=== PATIENT | female | born 1950 | race Caucasian/White ===

== ENCOUNTER 2019-03-28 09:09 | Emergency (ER) | payer OTHER ==
--- OUTSIDE RECORDS SUMMARY | 2019-03-28 09:12 | XMS REPORT ---
:1950 Author Organization [facility] Address [address] [place] [address] Care Team Providers Name Role Phone Unavailable Unavailable Unavailable Payers Payer Name Policy Type Policy Number Effective Date Expiration Date Problems This patient has no known problems. Allergies, Adverse Reactions, Alerts Allergy Name Allergy Status Severity Reaction(s) Onset Inactive Treating Comments Type Date Date Clinician FAUSTO Inhibitors DA Active SV 2018-04 00:00: 00 clindamycin DA Active MO 2018-04 00:00: 00 clindamycin DA Active MO 11-21 00:00: 00 FAUSTO Inhibitors DA Active SV 09-21 00:00: 00 No Known Drug DA Active U Intolerances 6- 00:00: 00 Medications This patient has no known medications. Results Test Description Test Time Test Comments Text Results Atomic Results Result Comments - XR FLUORO NDL 2019-02-19 12:23:00 Patient Name: STEPHANI ANDRADE Unit No: [id number] EXAMS: CPT CODE: [id number] XR FLUORO NDL 89984 Fluoroscopically guided right knee aspiration FINDINGS: After informed consent was obtained a 22-gauge needle is inserted into the right knee under fluoroscopic guidance using sterile technique. 5 cc of thin red fluid was aspirated. This is sent to the lab for analysis. The patient tolerated the procedure well. 21 seconds of fluoroscopy time was used on this exam. IMPRESSION: Fluoroscopically guided right knee aspiration. at 1223 Reported and signed by: Ronnell Ramos M.D. CC: Juan A Alston Technologist: Aleksandra Curry RT.(R) Transcribed D/ (2214) [facility] NAME: STEPHANI ANDRADE [address] [facility] PHYS: Juan A Allen : 1950 AGE: 68 SEX: F [id number] LOC: Y.RAD PHONE #: [phone] EXAM DATE: 02/13/2019 STATUS: DEP CLI FAX #: [phone] RAD #: D/C DT PAGE 1 Signed Report Patient Name: STEPHANI ANDRADE Unit No: [id number] EXAMS: CPT CODE: [id number] XR FLUORO NDL 25097 <Continued> Orig Print D/T: S: 02/19/2019 (9829) [facility] NAME: STEPHANI ANDRADE [address] [facility] PHYS: Juan A Allen : 1950 AGE: 68 SEX: F [place] [id number] LOC: Y.RAD PHONE #: [phone] EXAM DATE: 02/13/2019 STATUS: DEP CLI FAX #: [phone] RAD #: D/C DT PAGE 2 Signed Report SYNOVIAL FLD CELL CT/DIFF 2019-02-13 20:15:00 Test Item Value Reference Range Comments SYNOVIAL FLD COLOR (test code=COLSY) BLOODY LT. YELLOW SYNOVIAL FLD APPEARANCE (test code=APPSY) [place] CLEAR SYNOVIAL FLD VOLUME (test code=VOLSY) 0.5 mL SYNOVIAL FLD WBC (test code=WBCSY) 4514.000 /MM3 0-200 SYNOVIAL FLD RBC (test code=RBCSY) [id number] /mm3 0-2 SYNOVIAL FLD POLY (test code=POLYSY) 73 % 0-25 SYNOVIAL FLD LYMPHOCYTE (test code=LYMPHSY) 23 % 0-78 SYNOVIAL FLD MONOCYTE (test code=MONOSY) 3 % 0-71 SYNOVIAL FLD OTHER CELL (test code=OTHERSY) SEE BELOW EOSINOPHIL: 1 SPECIMEN COMMENT: RIGHT KNEE ASPIRATION NOVIAL FLD CELL [id number] 20:14:00 Test Item Value Reference Range Comments SYNOVIAL FLD COLOR (test code=COLSY) LT. YELLOW SYNOVIAL FLD APPEARANCE (test code=APPSY) CLEAR SYNOVIAL FLD VOLUME (test code=VOLSY) mL SYNOVIAL FLD WBC (test code=WBCSY) 4514.000 /MM3 0-200 SYNOVIAL FLD RBC (test code=RBCSY) 7818670.000 /mm3 0-2 SPECIMEN COMMENT: RIGHT KNEE ASPIRATION METABOLIC [id number] 06:07:00 Test Item Value Reference Range Comments SODIUM (test code=NA) 142 mmol/L 136-145 POTASSIUM (test code=K) 4.5 mmol/L 3.5-5.1 CHLORIDE (test code=CL) 104.0 mmol/L 98-107 CARBON DIOXIDE (test 29.6 mmol/L 21-32 code=CO2) GLUCOSE (test code=GLU) 126 mg/dL 70-110 BLOOD UREA NITROGEN (test 18 mg/dL 7-18 code=BUN) GLOMERULAR FILTRATION RATE 128.6 >60 Unit of measure: (test code=GFR) mL/min/1.73 [id number] Range:Healthy Adults >90 mL/min/1.73 m2 For Chronic Kidney Disease: Stage II Mild Decrease in GFR 60-90 Stage III Moderate Decrease in GFR 30-59 Stage IV Severe Decrease in GFR 15-29 Stage V Kidney Failure <15 CREATININE (test code=CREAT) 0.48 mg/dL 0.55-1.30 CALCIUM (test code=CA) 8.7 mg/dL 8.2-10.1 HGB [id number] 05:42:00 Test Item Value Reference Range Comments HEMOGLOBIN (test code=HGB) 12.3 g/dL 12-16 HEMATOCRIT (test code=HCT) 36.5 % 37-47 AB HIV 1 18:16:00 Test Item Value Reference Range Comments AB HIV 1 2 (test NONREACTIVE NONREACTIVE Done by [employer] 4th code=WRA10VA) Gen HIV Ag/Ab Combo Screen AB HIV 18:16:00 Test Item Value Reference Range Comments AB HIV 1 (test code=HIV1AB) NONREACTIVE NONREACTIVE DONE AT: [facility] [address] [place], [place] [address]Ygxi by [employer] 4th Gen HIV Ag/Ab Combo Screen URINALYSIS [id number] 14:33:00 Test Item Value Reference Range Comments UA COLOR (test code=COLU) YELLOW YELLOW UA APPEARANCE (test code=APPU) SL CLOUDY CLEAR UA GLUCOSE DIPSTICK (test code=DGLUU) NEGATIVE NEGATIVE UA BILIRUBIN DIPSTICK (test code=BILU) NEGATIVE NEGATIVE UA KETONE DIPSTICK (test code=KETU) NEGATIVE mg/dL NEG UA SPECIFIC GRAVITY (test code=SGU) 1.020 1.003-1.035 UA BLOOD DIPSTICK (test code=MALINDA) NEGATIVE NEGATIVE UA PH DIPSTICK (test code=ANGIE) 6.5 >6.5 UA PROTEIN DIPSTICK (test code=PROU) NEGATIVE mg/dL NEG UA UROBILINIOGEN DIPSTICK (test code=URO) 0.2 mg/dL NORM UA NITRITE DIPSTICK (test code=DAVID) NEGATIVE NEG UA LEUKOCYTE ESTERASE DIPSTICK (test TRACE NEGATIVE code=LEUU) UA WBC (test code=WBCU) <5 /HPF 0-2 UA RBC (test code=RBCU) 0-2 /HPF 0-2 UA EPITHELIAL CELLS (test code=EPIU) FEW /HPF 0-2 UA BACTERIA (test code=BACU) FEW /HPF NONE UA MUCUS (test code=MUCU) 1+ /LPF NONE SEEN COMPREHENSIVE METABOLIC [id number] 14:31:00 Test Item Value Reference Range Comments SODIUM (test code=NA) 141 mmol/L 136-145 POTASSIUM (test code=K) 4.1 mmol/L 3.5-5.1 CHLORIDE (test code=CL) 105.0 mmol/L 98-107 CARBON DIOXIDE (test code=CO2) 29.4 mmol/L 21-32 GLUCOSE (test code=GLU) 105 mg/dL 70-110 BLOOD UREA NITROGEN (test 14 mg/dL 7-18 code=BUN) GLOMERULAR FILTRATION RATE 122.7 >60 Unit of measure: (test code=GFR) mL/min/1.73 [id number] Range:Healthy Adults >90 mL/min/1.73 m2 For Chronic Kidney Disease: Stage II Mild Decrease in GFR 60-90 Stage III Moderate Decrease in GFR 30-59 Stage IV Severe Decrease in GFR 15-29 Stage V Kidney Failure <15 CREATININE (test code=CREAT) 0.50 mg/dL 0.55-1.30 TOTAL PROTEIN (test code=PROT) 6.9 g/dL 6.4-8.2 ALBUMIN (test code=ALB) 4.0 g/dL 3.4-5.0 GLOBULIN (test code=GLOB) 2.9 g/dL 2.2-4.2 ALBUMIN/GLOBULIN RATIO (test 1.4 0.7-2.0 code=A/G) CALCIUM (test code=CA) 9.2 mg/dL 8.2-10.1 BILIRUBIN TOTAL (test 0.28 mg/dL 0.2-1.00 code=BILT) SGOT/AST (test code=AST) 21.0 U/L 15-37 SGPT/ALT (test code=ALT) 26.0 U/L 12-78 Please note new normal range. ALKALINE PHOSPHATASE TOTAL 69 U/L 46-116 (test code=ALKP) CBC W/AUTO [id number] 14:30:00 Test Item Value Reference Range Comments WHITE BLOOD CELL (test code=WBC) 6.2 K/mm3 5.8-11.0 RED BLOOD CELL (test code=RBC) 4.38 M/mm3 4.2-5.4 HEMOGLOBIN (test code=HGB) 14.2 g/dL 12-16 HEMATOCRIT (test code=HCT) 40.8 % 37-47 MEAN CELL VOLUME (test code=MCV) 93 fL 80-98 MEAN CELL HGB (test code=MCH) 32.4 pg 27-34 MEAN CELL HGB CONCENTRATION (test code=MCHC) 34.8 g/dL 30.8-34.1 RED CELL DISTRIBUTION WIDTH (test code=RDW) 12.8 % 11-16 PLT (test code=PLT) 231 K/mm3 130-400 MEAN PLATELET VOLUME (test code=MPV) 9.9 fL 8.9-12.1 NEUTROPHIL % (test code=NT%) 51.8 % 45-70 LYMPHOCYTE % (test code=LY%) 36.4 % 20-40 MONOCYTE % (test code=MO%) 9.3 % 3-10 EOSINOPHIL % (test code=EO%) 1.5 % 1-5 BASOPHIL % (test code=BA%) 0.7 % 0.0-1.1 NEUTROPHIL # (test code=NT#) 3.19 K/mm3 2.00-7.50 LYMPHOCYTE # (test code=LY#) 2.24 K/mm3 1.50-4.00 MONOCYTE # (test code=MO#) 0.57 K/mm3 0.2-0.8 EOSINOPHIL # (test code=EO#) 0.09 K/mm3 0.04-0.4 BASOPHIL # (test code=BA#) 0.04 K/mm3 0.02-0.10 MANUAL DIFF REQUIRED (test code=MDIFF) NO MANUAL DIFF NUCLEATED RED BLOOD CELL (test code=NRBC) 0 % 0-0 PROTHROMBIN [id number] 14:18:00 Test Item Value Reference Range Comments PROTHROMBIN TIME PATIENT 13.9 secs 10.1-12.5 (test code=PTP) INTERNATIONAL NORMAL RATIO 1.23 <2.0 RECOMMENDED THERAPEUTIC RANGE (test code=INR) FOR ORAL ANTICOAGULANTTREATMENT: CONDITION INRProphylaxis of venous thrombosis in 2.0 - 3.0 high-risk medical or surgical patientsTreatment of venous thrombosis 2.0 - 3.0Prevention of embolism 2.0 - 3.0Prevention of recurrent embolism, or 3.0 - 4.5 patients with mechanical prosthetic intravascular valves IS PATIENT ON ANTICOAGULANTS ? YLIST ANTICOAGULANT/ANTI PLT MEDICATION : OtherHas Lab been notified if Patient is on Heparin Drip? NOIf Yes, order CBC, OCCULT BLOOD, PT every other day NTHROMBOPLASTIN TIME [id number] 14:18:00 Test Item Value Reference Range Comments PTT ACTIVATED (test code=APTT) 30.4 secs 24.9-37.0 IS PATIENT ON ANTICOAGULANTS ? YLIST ANTICOAGULANT/ANTI PLT MEDICATION : OtherHas Lab been notified if Patient is on Heparin Drip? NOIf Yes, order CBC, OCCULT BLOOD, PT every other day N
[2019-03-28] MEDS ORDERED: HYDROCODONE/CHLORPHEN 5 ML/OSYR ONE (10:22)
[2019-03-28 10:49] LABS: Basophils % 0.6 % (0-1.3); Hematocrit 40.9 % (36.0-45.0); Lymphocytes % 36.9 % (15.3-44.8); MPV 7.4 fL (7.6-11.3); RBC Red Blood Cell Count 4.33 M/uL (3.86-4.86)
[2019-03-28 10:50] LABS: Protime INR 1.47
--- NOTE | 2019-03-28 10:53 | RAD REPORT ---
EXAM DESCRIPTION: RAD - Chest Pa And Lat (2 Views) - 03/28/2019 10:42 am CLINICAL HISTORY: COUGH, congestion COMPARISON: June 2014 TECHNIQUE: PA and lateral views of the chest were obtained. FINDINGS: The lungs are clear of a focal mass or consolidation. No failure or volume overload suspec krysten. Interstitial pattern is not substantially different when adjusting for differences in technique. Heart size is normal and central vasculature is within normal limits. No pleural effusion or pneu mothorax seen. No acute bony finding noted. No aortic abnormality. IMPRESSION: No focal mass or consolidation. Baseline interstitial pattern could potentially mask min imal interstitial edema or infiltrate.
[2019-03-28 11:03] LABS: ALT/SGPT 30 U/L (12-78); AST/SGOT 19 U/L (15-37); Albumin 3.6 g/dL (3.4-5.0); Alkaline Phosphatase 72 U/L (45-117); BUN Blood Urea Nitrogen 14 mg/dL (7-18); Bicarbonate 34 mmol/L (21-32); Bilirubin Direct < 0.1 mg/dL (0-0.2); Bilirubin Total 0.4 mg/dL (0.2-1.0); Glucose Level 110 mg/dL (74-106); Magnesium 1.9 mg/dL (1.8-2.4); NT PRO-BNP 297 pg/mL (<125); Potassium 3.8 mmol/L (3.5-5.1); Protein, Total 7.2 g/dL (6.4-8.2); Sodium Level 142 mmol/L (136-145); Troponin (Emerg Dept Use Only) < 0.02 ng/mL (0.0-0.045)
--- NOTE | 2019-03-28 11:35 | ER ---
Nurse's Notes [facility] Name: Gayathri Wiggins Age: 68 yrs Sex: Female : 1950 Arrival Date: 03/28/2019 Time: 09:12 Bed 16 Private MD: Diagnosis: Influenza due to certain identified influenza viruses-influneza B Presentation: 03/28 09:24 Presenting complaint: Patient states: cough and congestion x [address] Hernandez called in ss Augmentin 3 days ago which patient believes she is getting better, but she is concerned because since last night she now has blood tinged sputum and is on blood thinners. Transition of care: patient was not received from another setting of care. Onset of symptoms was March 23, 2019. Risk Assessment: Do you want to hurt yourself or someone else? Patient reports no desire to harm self or others. Initial Sepsis Screen: Does the patient meet any 2 criteria? HR > 90 bpm. Does the patient have a suspected source of infection? Yes: Productive cough/pneumonia. Care prior to arrival: None. 09:24 Acuity: KI 3 ss 09:24 Method Of Arrival: Ambulatory ss Triage Assessment: 09:15 Headache History: The patient has had previous headaches and this one is similar to rb1 previous episodes. 09:15 Pain: Also complains of no other associated symptoms. rb1 Historical: - Allergies: 09:24 FAUSTO INHIBITORS; ss - PMHx: 09:24 Atrial Fib; Hypertension; ss - PSHx: 09:24 Mastectomy, Left; R knee replacement; Appendectomy; Hysterectomy; cataracts; ss - Immunization history:: Adult Immunizations up to date. - Social history:: Smoking status: Patient/guardian denies using tobacco. - Ebola Screening: : Patient denies exposure to infectious person Patient denies travel to an Ebola-affected area in the 21 days before illness onset. Screenin:15 Abuse screen: Denies threats or abuse. Nutritional screening: No deficits noted. rb1 Tuberculosis screening: No symptoms or risk factors identified. Fall Risk None identified. Assessment: 09:15 General: Appears in no apparent distress. comfortable, Behavior is calm, cooperative, rb1 Denies fever. Neuro: Level of Consciousness is awake, alert, obeys commands, Oriented to person, place, time, situation. Cardiovascular: Capillary refill < 3 seconds is brisk in bilateral fingers. Respiratory: Airway is patent Respiratory effort is even, unlabored, Respiratory pattern is regular, symmetrical. Respiratory: Reports shortness of breath on exertion cough that is productive, blood tinged sputum. Pt. is on blood thinners. GI: Reports diarrhea, since Since starting the antibiotic. : No signs and/or symptoms were reported regarding the genitourinary system. Derm: Skin is pink, warm \T\ dry. Musculoskeletal: Range of motion: intact in all extremities. 09:15 Pain: Denies pain. rb1 10:15 Reassessment: Patient appears in no apparent distress at this time. No changes from rb1 previously documented assessment. 11:15 Reassessment: Patient appears in no apparent distress at this time. Patient and/or rb1 family updated on plan of care and expected duration. Pain level reassessed. Patient is alert, oriented x 3, equal unlabored respirations, skin warm/dry/pink. Patient states feeling better. 12:10 Reassessment: Patient appears in no apparent distress at this time. No changes from rb1 previously documented assessment. Vital Signs: 09:21 BP 133 / 77; Pulse 103; Resp 18; Temp 97.8(TE); Pulse Ox 91% on R/A; Weight 101.15 kg; ss Height 5 ft. 6 in. (167.64 cm); Pain 0/10; 10:20 BP 123 / 69; Pulse 75; Resp 19; Pulse Ox 94% on R/A; Pain 0/10; rb1 11:20 BP 120 / 72; Pulse 70; Resp 18; Pulse Ox 94% on R/A; Pain 0/10; rb1 12:10 BP 112 / 83; Pulse 72; Resp 19; Pulse Ox 94% on R/A; Pain 0/10; rb1 09:21 Body Mass Index 35.99 (101.15 kg, 167.64 cm) ED Course: 09:12 Patient arrived in ED. ag5 09:15 Patient has correct armband on for positive identification. Bed in low position. Call rb1 light in reach. Side rails up X 1. Pulse ox on. NIBP on. 09:21 Arm band placed on right wrist. ss 09:22 Camelia Alexis, CHARBEL is Primary Nurse. rb1 09:23 Tiago Graham NP is PHCP. pm1 09:23 Lorenzo Fox MD is Attending Physician. pm1 09:26 Triage completed. ss 10:30 Inserted saline lock: 22 gauge in right antecubital area, using aseptic technique. rb1 Blood collected. 10:41 Chest Pa And Lat (2 Views) XRAY In Process Unspecified. EDMS 12:15 No provider procedures requiring assistance completed. IV discontinued, intact, rb1 bleeding controlled, No redness/swelling at site. Pressure dressing applied. Administered Medications: 10:20 Drug: Tussionex Pennkinetic ER 5 ml Route: PO; rb1 12:28 Follow up: Response: No adverse reaction; Other; Coughing decreased rb1 Intake: Outcome: 11:34 Discharge ordered by MD. pm1 12:15 Patient left the ED. rb1 12:15 Discharged to home ambulatory, with significant other. rb1 12:15 Condition: stable 12:15 Discharge instructions given to patient, Instructed on discharge instructions, follow up and referral plans. medication usage, Demonstrated understanding of instructions, follow-up care, medications, Prescriptions given X 2. Signatures: Dispatcher [employer] [facility] Bee Waggoner RN RN Camelia Alexis RN RN rb1 Tiago Graham WELL LOGGER WELL LOGGER pm1 Iván Oshea ag5 Corrections: (The following items were deleted from the chart) 09:37 09:15 Respiratory: Reports cough that is productive, blood tinged sputum. Pt. is on rb1 blood thinners. rb1 11:48 11:20 BP 154 / 99; Pulse 89bpm; Resp 16bpm; Pulse Ox 98% RA; rb1 rb1 12:25 12:23 Patient left the ED. rb1 rb1 12:28 09:15 General: Appears in no apparent distress. comfortable, Behavior is calm, rb1 cooperative, Denies fever, rb1
--- NOTE | 2019-03-28 11:36 | EDPHYS ---
Physician Documentation [facility] Name: Gayathri Wiggins Age: 68 yrs Sex: Female : 1950 Arrival Date: 03/28/2019 Time: 09:12 Bed 16 Private MD: ED Physician Lorenzo Fox HPI: 03/28 10:56 This 68 yrs old Female presents to ER via Ambulatory with complaints of pm1 Cough, Headache. 10:56 The patient or guardian reports cough, with productive sputum, that is yellow. Onset: pm1 The symptoms/episode began/occurred 5 day(s) ago. Severity of symptoms: in the emergency department the symptoms have improved, but worse since yesterday. Modifying factors: The symptoms are alleviated by prescription meds, augmentin. Associated signs and symptoms: Pertinent positives: blood tinged sputum since last night, some shortness of breath, Pertinent negatives: chest pain, sore throat. The patient has not experienced similar symptoms in the past. prescribed Augmentin 3 days ago. Historical: - Allergies: 09:24 FAUSTO INHIBITORS; ss - PMHx: 09:24 Atrial Fib; Hypertension; ss - PSHx: 09:24 Mastectomy, Left; R knee replacement; Appendectomy; Hysterectomy; cataracts; ss - Immunization history:: Adult Immunizations up to date. - Social history:: Smoking status: Patient/guardian denies using tobacco. - Ebola Screening: : Patient denies exposure to infectious person Patient denies travel to an Ebola-affected area in the 21 days before illness onset. ROS: 10:56 Constitutional: Negative for fever, chills, and weight loss, Eyes: Negative for injury, pm1 pain, redness, and discharge, ENT: Negative for injury, pain, and discharge, Neck: Negative for injury, pain, and swelling, Cardiovascular: Negative for chest pain, palpitations, and edema. 10:56 Abdomen/GI: Negative for abdominal pain, nausea, vomiting, diarrhea, and constipation, Back: Negative for injury and pain, : Negative for injury, bleeding, discharge, and swelling, MS/Extremity: Negative for injury and deformity, Skin: Negative for injury, rash, and discoloration. 10:56 Respiratory: Positive for cough, shortness of breath, Negative for wheezing. 10:56 Neuro: Positive for headache, Negative for numbness, tingling. Exam: 10:56 Constitutional: This is a well developed, well nourished patient who is awake, alert, pm1 and in no acute distress. Head/Face: Normocephalic, atraumatic. Eyes: Pupils equal round and reactive to light, extra-ocular motions intact. Lids and lashes normal. Conjunctiva and sclera are non-icteric and not injected. Cornea within normal limits. Periorbital areas with no swelling, redness, or edema. ENT: Nares patent. No nasal discharge, no septal abnormalities noted. Tympanic membranes are normal and external auditory canals are clear. Oropharynx with no redness, swelling, or masses, exudates, or evidence of obstruction, uvula midline. Mucous membranes moist. Neck: Trachea midline, no thyromegaly or masses palpated, and no cervical lymphadenopathy. Supple, full range of motion without nuchal rigidity, or vertebral point tenderness. No Meningismus. Chest/axilla: Normal chest wall appearance and motion. Nontender with no deformity. No lesions are appreciated. Cardiovascular: Regular rate and rhythm with a normal S1 and S2. No gallops, murmurs, or rubs. Normal PMI, no JVD. No pulse deficits. Respiratory: Lungs have equal breath sounds bilaterally, clear to auscultation and percussion. No rales, rhonchi or wheezes noted. No increased work of breathing, no retractions or nasal flaring. Abdomen/GI: Soft, non-tender, with normal bowel sounds. No distension or tympany. No guarding or rebound. No evidence of tenderness throughout. Back: No spinal tenderness. No costovertebral tenderness. Full range of motion. Skin: Warm, dry with normal turgor. Normal color with no rashes, no lesions, and no evidence of cellulitis. MS/ Extremity: Pulses equal, no cyanosis. Neurovascular intact. Full, normal range of motion. 10:56 Neuro: Orientation: is normal, Motor: is normal, moves all fours. Vital Signs: 09:21 BP 133 / 77; Pulse 103; Resp 18; Temp 97.8(TE); Pulse Ox 91% on R/A; Weight 101.15 kg; ss Height 5 ft. 6 in. (167.64 cm); Pain 0/10; 10:20 BP 123 / 69; Pulse 75; Resp 19; Pulse Ox 94% on R/A; Pain 0/10; rb1 11:20 BP 120 / 72; Pulse 70; Resp 18; Pulse Ox 94% on R/A; Pain 0/10; rb1 12:10 BP 112 / 83; Pulse 72; Resp 19; Pulse Ox 94% on R/A; Pain 0/10; rb1 09:21 Body Mass Index 35.99 (101.15 kg, 167.64 cm) ss MDM: 09:29 Patient medically screened. [facility] 11:33 Data reviewed: vital signs. Counseling: I had a detailed discussion with the patient pm1 and/or guardian regarding: the historical points, exam findings, and any diagnostic results supporting the discharge/admit diagnosis, lab results, radiology results, the need for outpatient follow up, to return to the emergency department if symptoms worsen or persist or if there are any questions or concerns that arise at home. 11:40 ED course: Impression is patient had bronchitis 5 days ago responding to Augmentin. pm1 Patient caught the flu and started showing symptoms yesterday. Therefore will treat with Tamiflu due to interstitial lung disease on chest x-ray. 03/28 10:14 Order name: Flu; Complete Time: 10:50 pm1 03/28 10:14 Order name: Basic Metabolic Panel; Complete Time: 11:20 pm1 03/28 10:14 Order name: CBC with Diff; Complete Time: 11:20 pm1 03/28 10:14 Order name: LFT's; Complete Time: 11:20 pm1 03/28 10:14 Order name: Magnesium; Complete Time: 11:20 pm1 03/28 10:14 Order name: NT PRO-BNP; Complete Time: 11:20 pm1 03/28 10:14 Order name: Chest Pa And Lat (2 Views) XRAY; Complete Time: 11:20 pm1 03/28 10:14 Order name: PT-INR; Complete Time: 11:20 pm1 03/28 10:14 Order name: Troponin (emerg Dept Use Only); Complete Time: 11:20 pm1 03/28 10:14 Order name: EKG; Complete Time: 10:16 pm1 03/28 10:14 Order name: Cardiac monitoring; Complete Time: 10:41 pm1 03/28 10:14 Order name: EKG - Nurse/Tech; Complete Time: 11:16 pm1 03/28 10:14 Order name: IV Saline Lock; Complete Time: 10:41 pm1 03/28 10:14 Order name: Labs collected and sent; Complete Time: 10:41 pm1 03/28 10:14 Order name: O2 Per Protocol; Complete Time: 10:41 pm1 03/28 10:14 Order name: O2 Sat Monitoring; Complete Time: 10:41 pm1 Administered Medications: 10:20 Drug: Tussionex Pennkinetic ER 5 ml Route: PO; rb1 12:28 Follow up: Response: No adverse reaction; Other; Coughing decreased rb1 Disposition: 19:50 Co-signature as Attending Physician, Lorenzo Fox MD I agree with the assessment and hannah plan of care. Disposition: 03/28/19 11:34 Discharged to Home. Impression: Influenza due to certain identified influenza viruses - influneza B. - Condition is Stable. - Discharge Instructions: Influenza, Adult, Eywo-dr-Lgyq. - Prescriptions for Guaifenesin AC 10- 100 mg/5 mL Oral Liquid - take 10 milliliter by ORAL route every 4 hours As needed; 240 milliliter. Tamiflu 75 mg Oral Capsule - take 1 tablet by ORAL route every 12 hours for 5 days; 10 tablet. - Medication Reconciliation Form, Thank You Letter, Antibiotic Education, Prescription Opioid Use form. - Follow up: Emergency Department; When: As needed; Reason: Worsening of condition. Follow up: Private Physician; When: 2 - 3 days; Reason: Recheck today's complaints, Continuance of care, Re-evaluation by your physician. - Problem is new. - Symptoms have improved. Signatures: Dispatcher [employer] [facility] Lorenzo Fox MD MD cha Smirch, Shelby RN RN ss Camelia Alexis RN RN rb1 Tiago Graham, BUFFING MACHINE OPERATOR SEMIAUTOMATIC BUFFING MACHINE OPERATOR SEMIAUTOMATIC pm1 Corrections: (The following items were deleted from the chart) 12:23 11:34 03/28/2019 11:34 Discharged to Home. Impression: Influenza due to certain rb1 identified influenza viruses - influneza B. Condition is Stable. Forms are Medication Reconciliation Form, Thank You Letter, Antibiotic Education, Prescription Opioid Use. Follow up: Emergency Department; When: As needed; Reason: Worsening of condition. Follow up: Private Physician; When: 2 - 3 days; Reason: Recheck today's complaints, Continuance of care, Re-evaluation by your physician. Problem is new. Symptoms have improved. pm1
[2019-03-28 12:30] VITALS: TEMP 97.8
[2019-03-28 12:32] VITALS: O2SAT 94
[2019-03-28 12:33] VITALS: BP 120/72
--- NOTE | 2019-03-29 11:45 | EKG ---
Test Date: 2019-03-28 Test Time: 11:13:52 Custom Decorating Consultant: NELLIE MEASUREMENT RESULTS: Intervals: Rate: 74 NC: 116 QRSD: 78 QT: 418 QTc: 463 [place]: P: -21 NC: 116 QRS: 46 T: 47 INTERPRETIVE STATEMENTS: Normal sinus rhythm Normal ECG Compared to ECG 06/20/2014 06:16:32 No significant changes Electronically Signed On 03-29-19 11:42:14 WALLPAPER HANGER HELPER by Anil Rust
== END 2019-03-28 12:23 | disposition home or self-care (01) ==
LOC: ER 09:09
DX: J10.1 Influenza due to other identified influenza virus with other respiratory manifestations (principal); I10 Essential (primary) hypertension; Z88.8 Allergy status to other drugs, medicaments and biological substances
CPT/HCPCS: 36415; 71046; 80048; 80076; 83735; 83880; 84484; 85025; 85610; 87804; 93005; 99284